=== PATIENT | male | born 1985 | race Asian ===

== ENCOUNTER 2022-05-30 08:13 | Emergency (ER) | payer OTHER ==
[~2022-05-30] VITALS: Ht 175.3 cm; Wt 77.1 kg
[2022-05-30 08:28] VITALS: BP 117/76
[2022-05-30] MEDS ORDERED: LORA-259 PO (08:41)
--- NOTE | 2022-05-30 09:11 | NUR ---
Patient discharged to home in stable condition. Written and verbal after care instructions given. Patient verbalizes understanding of instruction.
== END 2022-05-30 09:10 | disposition home or self-care (01) ==
LOC: ER 08:21
DX: F41.9 Anxiety disorder, unspecified (principal)